=== PATIENT | female | born 1935 ===

== ENCOUNTER 2023-08-08 08:56 | Outpatient (CLI) | payer OTHER, SELFPAY ==
[2023-08-08 09:04] LABS: Microscopic, Urine URINE MICROSCOPIC (MICROSCOPIC)
[2023-08-08 09:15] LABS: Appearance,Urine CLEAR (Clear); Bilirubin,Urine Negative (Negative); Blood, Urine Negative (Negative); Color,Urine YELLOW (Yellow); Glucose,Urine (UA) Negative (Negative); Ketones,Urine Negative (Negative); Leukocyte Esterase,Urine TRACE (Negative); Nitrate,Urine Negative (Negative); Protein,Urine Negative (Negative); Specific Gravity, Urine >= 1.030 (1.005-1.030); Urobilinogen,Urine 0.2 EU/dl (0.2)
[2023-08-08 09:47] LABS: Bacteria,Urine 2+ /lpf
== END 2023-08-08 23:59 | disposition home or self-care (01) ==
LOC: LAB.DROPOF 08:59
PROVIDERS: PCP Family Medicine Hospice and Palliative Medicine; Visit Provider Family Medicine Hospice and Palliative Medicine
DX: I25.10 Atherosclerotic heart disease of native coronary artery without angina pectoris (principal); B95.2 Enterococcus as the cause of diseases classified elsewhere
CPT/HCPCS: 81001; 87086